=== PATIENT | female | born 1955 | race Caucasian/White ===

== ENCOUNTER 2016-04-24 20:28 | Emergency (ER) | payer MEDICARE | END 2016-04-24 21:59 | disposition home or self-care (01) | LOC: ER 20:28 | DX: M51.9 Unspecified thoracic, thoracolumbar and lumbosacral intervertebral disc disorder (principal); M79.1 Myalgia; I10 Essential (primary) hypertension; M25.512 Pain in left shoulder; Z88.8 Allergy status to other drugs, medicaments and biological substances; Z79.899 Other long term (current) drug therapy | CPT/HCPCS: 71250; 73030; 99283-25 ==